=== PATIENT | female | born 1990 | race Caucasian/White ===

== ENCOUNTER 2018-10-07 13:46 | Emergency (ER) | payer OTHER ==
[2018-10-07 13:56] VITALS: BP 134/94
--- NOTE | 2018-10-07 15:00 | ED Physician Documentation ---
PD HPI HEENT - Stated complaint Stated Complaint: THROAT PX - Chief complaint Chief Complaint: Heent - History obtained from History obtained from: Patient - History of Present Illness Timing - onset: How many days ago (5) Timing - duration: Days (5) Timing - details: Abrupt onset, Still present in ED Location: Throat Improves: Medication Worsens: Swalllowing Associated symptoms: Headache. No: Fever, Congestion, Cough Recently seen: Surgery - Additional information Additional information: 28-year-old female had her tonsils out 5 days ago and she has gone to her prescription of oxycodone and continues to have pain that is not allowing her to drink fluids adequately. She states that after about 3 days the pain medication did not seem to be working as well and she eventually increased her dose at the direction of the clinic and she has now run out of her medication. She has been taking Tylenol, ibuprofen and 5 mg oxycodone. Review of Systems Constitutional: denies: Fever, Chills Eyes: denies: Decreased vision Ears: denies: Ear pain Nose: denies: Rhinorrhea / runny nose, Congestion Throat: reports: Sore throat Respiratory: denies: Cough GI: denies: Vomiting PD PAST MEDICAL HISTORY - Past Medical History Past Medical History: No - Past Surgical History Past Surgical History: Yes HEENT: Tonsil/Adenoidectomy - Present Medications Home Medications: Ambulatory Orders Medication Instructions Recorded Confirmed oxyCODONE [Roxicodone] 5 - 10 mg PO Q6H PRN #14 tablet 10/07/18 - Allergies Allergies/Adverse Reactions: Allergies Allergy/AdvReac Type Severity Reaction Status Date / Time Sulfa (Sulfonamide Allergy Rash Verified 10/07/18 13:55 Antibiotics) - Social History Does the pt smoke?: No Smoking Status: Never smoker Does the pt drink ETOH?: No Does the pt have substance abuse?: No - Immunizations Immunizations are current?: Yes - POLST Patient has POLST: No PD ED PE NORMAL - Vitals Vital signs reviewed: Yes (hypertensive ) - General General: Alert and oriented X 3, No acute distress, Well developed/nourished - HEENT HEENT: Atraumatic, PERRL, EOMI, Ears normal, Other (There is a uniformly white background to the posterior pharynx consistent with the healing from the recent tonsillectomy ) - Neck Neck: Supple, no meningeal sign, No bony TTP - Cardiac Cardiac: No murmur, Other (tachy to 100) - Respiratory Respiratory: No respiratory distress - Abdomen Abdomen: Soft, Non tender - Derm Derm: Normal color, Warm and dry, No rash - Extremities Extremities: No deformity, No edema - Neuro Neuro: Alert and oriented X 3, 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, No motor deficit, No sensory deficit, Normal speech Eye Opening: Spontaneous Motor: Obeys Commands Verbal: Oriented GCS Score: 15 - Psych Psych: Normal mood, Normal affect Results - Vitals Vitals: Vital Signs - 24 hr 10/07/18 13:53 Temperature 36.9 C Heart Rate 82 Respiratory 18 Rate Blood Pressure 134/94 H O2 Saturation 98 Oxygen O2 Source Room air PD MEDICAL DECISION MAKING - ED course Complexity details: considered differential, d/w patient ED course: 28-year-old female status post tonsillectomy continues to have pain she does se em a bit dehydrated today we will refill her pain medication and I have encouraged her to hydrate excessively. Departure - Departure Disposition: 01 Home, Self Care Clinical Impression: Post-operative pain Condition: Stable Instructions: Tonsillectomy Follow-Up: Cody Win MD [Physician No Access] - Prescriptions: oxyCODONE [Roxicodone] 5 - 10 mg PO Q6H PRN #14 tablet PRN Reason: Pain
== END 2018-10-07 15:04 | disposition home or self-care (01) ==
LOC: ED 13:46
DX: G89.18 Other acute postprocedural pain (principal)
CPT/HCPCS: 99282; 99283